=== PATIENT | male | born 1970 | race Caucasian/White ===

== ENCOUNTER 2023-07-05 08:05 | Emergency (ER) | payer OTHER, SELFPAY ==
--- NOTE | 2023-07-05 08:12 | ED.SKABFB ---
HPI - Skin/Abscess/Foreign Bdy General Chief complaint: Skin/Abscess/Foreign Body Stated complaint: Infection in stomach Source: patient and RN notes reviewed History of Present Illness HPI narrative: 53 yo M presents to urgent care with complaints of a possible abscess to his left lower abdomen. Pt states he first noticed 2 days ago but has been increasing in irritation since. Pt states he notices it b/c it's right where his waistband of his pants lie. Pt denies any drainage from the area. Denies any fevers, chills, vomiting, or abdominal pain. Related Data Allergies Allergy/AdvReac Type Severity Reaction Status Date / Time No Known Allergies Allergy Verified 07/05/23 08:13 Review of Systems Review of Systems: CONSTITUTIONAL: Denies fever, chills, or sweats. EYES: Denies visual changes, redness, or discharge. ENT: Denies otalgia and sore throat CARDIOVASCULAR: Denies chest pain, palpitations, or edema. RESPIRATORY: Denies cough or dyspnea. GASTROINTESTINAL: Denies abdominal pain, nausea, vomiting, or diarrhea. GENITOURINARY: Denies dysuria or hematuria. SKIN: red, tender, irritation to left lower abdomen MUSCULOSKELETAL: Denies back pain, joint pain, or myalgia. NEUROLOGIC: Denies headache, numbness, or weakness. Pertinent positives per HPI. [facility] Family History Family History Father Family history of cardiovascular disease Grandparent Carcinoma of colon, Onset Age: 70 Family history of malignant neoplasm of breast Social History Social History (Updated 03/02/22 @ 09:32 by JANINA Real) Alcohol intake: current Comments At the time of my signature, I reviewed and agree with the nursing past medical, surgical, social, and family history. There is no relevant family history pertinent to the patient complaint. Exam Narrative: GENERAL: This is a well-nourished, well-developed patient, in no apparent distress. HEAD: normocephalic, atraumatic. EYES: Sclera clear/white. Vision is grossly intact. EARS: External ears normal, auditory canals clear and without drainage. Hearing grossly intact. NOSE: External nose normal with no obvious nasal discharge, nares without redness, no rhinorrhea. THROAT: Mucous membranes moist, posterior pharynx clear. NECK: Neck supple, non-tender without lymphadenopathy, masses or thyromegaly. CARDIOVASCULAR: Regular rate RESPIRATORY: No respiratory distress GASTROINTESTINAL: Abdomen soft, non-tender, nondistended. Bowel sounds are active. No hepato-splenomegaly, or palpable masses. No guarding. SKIN: area of 3 cm x 2 cm of erythemic, raised, soft tissue to left lower abdomen. no area of induration. small white head in center. no drainage. NEURO: awake, alert, and oriented to person, place and time. There were no obvious focal neurologic abnormalities. EXTREMITIES: No clubbing, cyanosis, or edema. No joint tenderness, effusion, or edema noted. BACK: Nontender without deformity or crepitus. No flank tenderness. Course Course Level of Care: Express Care Visit Vital Signs Vital signs: Reviewed MDM - Skin/Abscess/Foreign Bdy MDM Narrative Medical decision making narrative: Take the antibiotics as directed. May apply a warm compress a few times a day. If it starts to drain, allow it to drain. Do not pick or squeeze the area. keep it clean and dry. Be seen by a medical provider if you develop any fevers, vomiting, inner abdominal pain, or increased redness. Differential Diagnosis Differential diagnosis: Likely abscess of skin or subcutaneous tissue, cellulitis and insect bites Critical Care Time Critical Care Time Critical Care Time: No Discharge Plan Discharge Clinical Impression: Abscess of skin or subcutaneous tissue Qualifiers: Site of cutaneous abscess: trunk Site of cutaneous abscess of trunk: abdominal wall Qualified Code(s): L02.211 - Cutaneous abscess of abdominal wall Patient Dispositi
[2023-07-05 08:15] VITALS: BP 128/81; PULSE 63; RESP 16; TEMP 36.6; O2SAT 100
== END 2023-07-05 08:23 | disposition home or self-care (01) ==
PROVIDERS: Emergency Provider Nurse Practitioner Family; PCP Family Medicine
DX: L02.211 Cutaneous abscess of abdominal wall (principal)
CPT/HCPCS: 99213; G0463

== ENCOUNTER 2023-08-29 07:40 | Day surgery (SDC) | payer OTHER, SELFPAY ==
[2023-08-27 10:57] VITALS: BMI 26.6
--- NOTE | 2023-08-29 07:28 | WPDHPUPDATE1 ---
History and Physical Update Update Date/Time: 08/29/23 07:28 History and Physical has been reviewed, including an updated exam of the patient. There are NO changes in the patient's condition. Risks, benefits, and alternatives have been discussed and questions answered. Patient agrees to proceed with procedure.
[2023-08-29 08:50] VITALS: BP 120/83; PULSE 64; RESP 20; TEMP 36.8; O2SAT 100
[2023-08-29 09:33] VITALS: BP 121/73; PULSE 72; RESP 14; O2SAT 99
[2023-08-29 09:43] VITALS: BP 121/73; PULSE 84; RESP 11; O2SAT 98
[2023-08-29 10:02] VITALS: BP 125/71; PULSE 72; RESP 16; O2SAT 100
[2023-08-29 10:12] VITALS: BP 126/69; PULSE 83; RESP 12; O2SAT 97
[2023-08-29] MEDS: BUPivacaine HCL 0.5% PF 30 ML VIAL 15 ML INFILTRATE (10:15)
[2023-08-29] MEDS: LIDO 1%/EPINEPHRINE 1:100,000 50 ML VIAL 15 ML INFILTRATE (10:16)
--- NOTE | 2023-08-29 10:20 | P.OPB_ITS ---
Procedure Note - Brief Procedure Note - Brief Date of procedure: 08/29/23 Left Back Cyst and Left Groin Cyst Post-op diagnosis: Same Surgeon: Jaren Sal MD [employer] Supervisor: Dianne MOSS student Anesthesia: local Description of procedure: Excision back cyst and left groin cyst. Implants: None Estimated blood loss (mL): 5 Drains: No Packing: No Pathology: Yes Complications: No immediate complications Condition: Stable Disposition: PACU
[2023-08-29 10:26] VITALS: BP 125/80; PULSE 67; RESP 14; O2SAT 100
--- NOTE | 2023-08-29 16:21 | W.PM.PROC2 ---
Procedure Note - Detailed Date of Procedure 08/29/23 Pre-op Diagnosis Left Back Cyst and Left Groin Cyst Post-op Diagnosis Same Procedure Performed Excision of upper back sebaceous cyst with 3cm intermediate layered wound closure Excision of left groin cyst with 3cm intermediate layered wound closure Surgeon Jaren Sal MD Claims Sorter Dianne MOSS student Anesthesia Local Indications patient is a 53-year-old gentleman presented with a fairly small sebaceous cyst on the upper back region as well as a ruptured inclusion cyst in the left groin region. He presents now for excision of both of the cysts. Findings The back cyst measured 2x1x0.5cm. The left groin ruptured inclusion cyst measured 1.5x1x0.5cm. The back cyst intermediate layered wound closure was 3cm and the left groin cyst intermediate layered wound closure was 3cm. Description of Procedure After informed consent was obtained patient brought to the operating room he was placed prone on the operating table. The upper back area the cyst was then prepped and draped in usual sterile fashion. A time-out was then performed correctly identifying the patient as well as procedure to be performed. Site markings were verified. No antibiotics were given. 1% lidocaine mixed with 0.5% Marcaine was injected around the cyst in the upper back region for local anesthetic effect. I then utilized a scalpel to make a transverse elliptical incision to incorporate the whole cyst wall. The incision was carried deeply down to the dermis of the skin with a scalpel and then electrocautery is used to completely excise off the ellipse of tissue containing the cyst. The cyst wall was not ruptured. The cyst measured 2x1x0.5cm. It was sent to pathology for examination. Hemostasis was achieved in the wound utilizing the cautery. Was then irrigated sterile saline solution. I then closed the back cyst incision with a intermediate layered wound closure. The wound length was 3cm. Interrupted 3-0 Vicryl sutures were used in the subcutaneous tissues. This was followed by interrupted 3-0 Vicryl sutures the deep dermal layer. The skin edges were approximated utilizing a running subcuticular 4-0 Monocryl suture. Incision was then cleaned the skin glue was applied. The patient was then turned into the supine position on operating table. The area the left groin regions then prepped and draped usual sterile fashion again. Same local anesthetic mixture was then injected around the ruptured epidermal inclusion cyst in the left groin region. A transverse elliptical incision was then made to incorporate the area of cyst wall. The incision was carried deeply down to the dermis of the skin of the scalp with electrocautery was used to excise off the specimen. It was measured and it was 1.5x1x0.5cm. It was sent to pathology for examination. Again electrocautery is used to achieve hemostasis and was irrigated sterile saline solution. An intermediate layered wound closure measuring 3cm in length was then used to close incision. Interrupted 3-0 Vicryl sutures were used the subcutaneous tissues. The skin edges were then approximated utilizing a running subcuticular 4 Monocryl suture. The incision was then cleaned the skin glue was applied. The patient tolerated the procedure well no complications. All sponges, needles, and instrument counts were correct at the end procedure. EBL was _5__cc. The patient was awakened and taken to recovery in stable and satisfactory condition. Implants None Estimated Blood Loss 5 Drains No Packing No Pathology Yes ( back and left groin cyst sent to pathology) Complications No immediate complications Condition Stable [facility] Billing Surgery - Charge Forward: Surgery Billing
== END 2023-08-29 10:35 | disposition home or self-care (01) ==
PROVIDERS: PCP Family Medicine; Visit Provider Surgery
PROC: (CPT 21931; principal; 2023-08-29 09:30)
PROC: (CPT 21931; 2023-08-29 09:30)
DX: L72.3 Sebaceous cyst (principal); R22.2 Localized swelling, mass and lump, trunk
CPT/HCPCS: 21931; 27337

== ENCOUNTER 2023-08-29 09:02 | Outpatient (NON) | payer OTHER, SELFPAY | END 2023-08-29 09:03 | disposition home or self-care (01) | PROVIDERS: PCP Family Medicine; Visit Provider Internal Medicine Gastroenterology | DX: L72.3 Sebaceous cyst (principal) | CPT/HCPCS: 88305 ==